=== PATIENT | male | born 1950 | race Caucasian/White ===

== ENCOUNTER 2019-08-13 11:07 | Outpatient (CLI) | payer MEDICARE, SELFPAY ==
[2019-08-13 11:48] LABS: Alanine Aminotransferase 27 U/L (4-50); Albumin Level 4.6 g/dL (3.5-5.1); Alkaline Phosphatase 65 U/L (38-126); Aspartate Amino Transferase 37 U/L (17-59); Bilirubin,Total 0.7 mg/dL (0.2-1.3); Blood Urea Nitrogen 14 mg/dL (9-20); Calcium 9.9 mg/dL (8.4-10.2); Carbon Dioxide 24 mmol/L (22-30); Chloride 94 mmol/L (98-107); Cholesterol 157 mg/dL (0-200); Estimated Glomerular Filt Rate > 60; Glucose 103 mg/dL (75-110); HDL Direct 42 mg/dL; Potassium 4.3 mmol/L (3.4-5.0); Sodium 133 mmol/L (137-145); Triglycerides 107 mg/dL (<150)
[2019-08-13 11:49] LABS: Basophils Absolute Auto 0.1 K/mm3 (0.0-0.1); Basophils Percent Auto 1.1 % (0.2-1.2); Eosinophils Absolute Auto 0.4 K/mm3 (0-0.3); Eosinophils Percent Auto 5.5 % (0-4.4); Hematocrit 40.6 % (42.0-52.0); Hemoglobin 14.6 g/dL (14.0-18.0); Immature Granulocyte Absolute 0.01 K/mm3 (0.00-0.031); Immature Granulocyte Percent A 0.2 % (0-0.5); Lymphocytes Absolute Auto 3.15 K/mm3 (0.9-3.2); Lymphocytes Percent Auto 48.5 % (18.3-44.2); Mean Corpuscular Hemoglobin 31.7 pg (26-34); Mean Corpuscular Volume 88.3 fl (80-100); Mean Platelet Volume 10.3 fl (7.4-10.4); Monocytes Absolute Auto 0.4 K/mm3 (0.1-0.6); Monocytes Percent Auto 5.9 % (2.6-8.5); Neutrophils Absolute Auto 2.5 K/mm3 (1.3-6.7); Neutrophils Percent Auto 38.8 % (45.5-73.1); Platelet Count Result 186 k/mm3 (150-375); Red Cell Distribution Width 12.5 % (11.5-14.5); White Blood Count 6.5 K/mm3 (4.5-10.0)
[2019-08-13 11:59] LABS: LDL Cholesterol Direct 95 mg/dL
[2019-08-13 12:19] LABS: Prostate Specific Antigen 3.5 ng/mL (< OR = 4.0); Total Triiodothyronine (T3) 1.01 NG/ML (0.97-1.69)
[2019-08-13 12:38] LABS: Vitamin D 25 Hydroxy 27.4 ng/mL
== END 2019-08-13 11:08 | disposition home or self-care (01) ==
LOC: ANHLAB 11:11
PROVIDERS: PCP Family Medicine; Visit Provider Nurse Practitioner Family
DX: E78.2 Mixed hyperlipidemia (principal); R53.83 Other fatigue; Z12.5 Encounter for screening for malignant neoplasm of prostate; Z13.6 Encounter for screening for cardiovascular disorders
CPT/HCPCS: 36415; 80053; 80061; 82306; 84153; 84439; 84443; 84480; 85025; G0103

== ENCOUNTER 2019-12-31 10:26 | Outpatient (CLI) | payer MEDICARE, SELFPAY ==
[2019-12-31 12:11] LABS: Phosphorus 3.9 mg/dL (2.5-4.5)
[2019-12-31 12:34] LABS: Vitamin D 25 Hydroxy 53.1 ng/mL
== END 2019-12-31 10:27 | disposition home or self-care (01) ==
PROVIDERS: PCP Family Medicine; Visit Provider Nurse Practitioner Family
DX: E55.9 Vitamin D deficiency, unspecified (principal); M62.81 Muscle weakness (generalized)
CPT/HCPCS: 36415; 82306; 83735; 84100

== ENCOUNTER 2020-03-24 14:34 | Outpatient (CLI) | payer MEDICARE, SELFPAY ==
[2020-03-24 16:04] LABS: Alanine Aminotransferase 44 U/L (4-50); Albumin Level 4.4 g/dL (3.5-5.1); Alkaline Phosphatase 55 U/L (38-126); Anion Gap 7 mmol/L (8-16); Aspartate Amino Transferase 55 U/L (17-59); Blood Urea Nitrogen 10 mg/dL (9-20); Calcium 9.7 mg/dL (8.4-10.2); Carbon Dioxide 25 mmol/L (22-30); Chloride 95 mmol/L (98-107); Estimated Glomerular Filt Rate > 60; Glucose 109 mg/dL (75-110); Magnesium 1.9 mg/dL (1.6-2.3); Phosphorus 2.8 mg/dL (2.5-4.5); Potassium 4.7 mmol/L (3.4-5.0); Sodium 127 mmol/L (137-145)
== END 2020-03-24 14:35 | disposition home or self-care (01) ==
PROVIDERS: PCP Family Medicine; Visit Provider Nurse Practitioner
DX: R25.2 Cramp and spasm (principal); I10 Essential (primary) hypertension
CPT/HCPCS: 36415; 80053; 82607; 83735; 84100

== ENCOUNTER 2020-11-21 16:34 | Outpatient (CLI) | payer MEDICARE, SELFPAY ==
--- NOTE | ~2020-11-21 | XR_ITS ---
XR chest 2V DATE: 11/21/2020 17:08 INDICATION: Cough, shortness of breath. Smoker, history of COPD. TECHNIQUE: PA and lateral views COMPARISON: 07/05/2019 2 view chest FINDINGS: Normal heart size. Aortic calcification and mild tortuosity. No hilar or mediastinal enlarg ement is evident. No pulmonary infiltrate or consolidation, pleural effusion or pulmonary vascular congestion or pneumo thorax. Diffuse osteopenia. Degenerative spurring of the thoracic spine. IMPRESSION: No active cardiopulmonary disease Aortic atherosclerosis Reviewed, dictated and finalized at location B.
[2020-11-21 17:12] LABS: Basophils Absolute Auto 0.1 K/mm3 (0.0-0.1); Eosinophils Absolute Auto 0.3 K/mm3 (0-0.3); Eosinophils Percent Auto 4.3 % (0-4.4); Hematocrit 40.7 % (42.0-52.0); Hemoglobin 14.4 g/dL (14.0-18.0); Immature Granulocyte Absolute 0.01 K/mm3 (0.00-0.031); Immature Granulocyte Percent A 0.2 % (0-0.5); Lymphocytes Absolute Auto 2.42 K/mm3 (0.9-3.2); Lymphocytes Percent Auto 41.2 % (18.3-44.2); Mean Corpuscular HGB Conc 35.4 g/dl (32-36); Mean Corpuscular Hemoglobin 32.6 pg (26-34); Mean Corpuscular Volume 92.1 fl (80-100); Mean Platelet Volume 9.9 fl (7.4-10.4); Monocytes Absolute Auto 0.5 K/mm3 (0.1-0.6); Monocytes Percent Auto 7.8 % (2.6-8.5); Neutrophils Absolute Auto 2.7 K/mm3 (1.3-6.7); Neutrophils Percent Auto 45.5 % (45.5-73.1); Platelet Count Result 173 k/mm3 (150-375); Red Blood Count 4.42 M/mm3 (4.6-6.20); Red Cell Distribution Width 12.8 % (11.5-14.5); White Blood Count 5.9 K/mm3 (4.5-10.0)
[2020-11-21 18:06] LABS: Free T4 Free Thyroxine 0.85 ng/mL (0.78-2.19); Vitamin D 25 Hydroxy 56.2 ng/mL
[2020-11-22 13:48] LABS: Alanine Aminotransferase 31 U/L (4-50); Albumin Level 4.5 g/dL (3.5-5.1); Alkaline Phosphatase 61 U/L (38-126); Anion Gap 9 mmol/L (8-16); Aspartate Amino Transferase 48 U/L (17-59); Bilirubin,Total 0.4 mg/dL (0.2-1.3); Blood Urea Nitrogen 9 mg/dL (9-20); Calcium 10.1 mg/dL (8.4-10.2); Carbon Dioxide 24 mmol/L (22-30); Chloride 102 mmol/L (98-107); Cholesterol 147 mg/dL (0-200); Estimated Glomerular Filt Rate > 60; Glucose 140 mg/dL (75-110); HDL Direct 38 mg/dL; Potassium 4.1 mmol/L (3.4-5.0); Sodium 135 mmol/L (137-145); Triglycerides 105 mg/dL (<150)
[2020-11-22 13:59] LABS: LDL Cholesterol Direct 88 mg/dL
[2020-11-22 14:24] LABS: Prostate Specific Antigen 4.2 ng/mL (< OR = 4.0); Total Triiodothyronine (T3) 1.27 NG/ML (0.97-1.69)
== END 2020-11-21 16:35 | disposition home or self-care (01) ==
LOC: ANHLAB 16:41
PROVIDERS: PCP Family Medicine; Visit Provider Family Medicine
DX: R05 Cough (principal); I10 Essential (primary) hypertension; J44.9 Chronic obstructive pulmonary disease, unspecified; Z13.0 Encounter for screening for diseases of the blood and blood-forming organs and certain disorders involving the immune mechanism; Z13.6 Encounter for screening for cardiovascular disorders; Z13.220 Encounter for screening for lipoid disorders; Z13.29 Encounter for screening for other suspected endocrine disorder; Z12.5 Encounter for screening for malignant neoplasm of prostate; E55.9 Vitamin D deficiency, unspecified
CPT/HCPCS: 36415; 71046; 80053; 80061; 82306; 84153; 84439; 84443; 84480; 85025; G0103

== ENCOUNTER 2022-10-21 01:57 | Day surgery (SDC) | payer MEDICARE, SELFPAY ==
[2022-10-08 12:17] VITALS: BMI 31.1
[2022-10-21 12:22] VITALS: BP 107/95; PULSE 55; RESP 18; TEMP 36.6; O2SAT 97
[2022-10-21] MEDS: LACTATED RINGERS 1,000 ML 150 ML IV CONT (12:44)
--- NOTE | 2022-10-21 13:02 | PM.HPGS ---
History of Present Illness History of Present Illness Consent: Risks, benefits, and alternatives have been discussed and questions answered. Patient agrees to proceed with procedure. Chief complaint: neoplasm screening Narrative: Henry Ardon is a 72 year old male Presents for screening colonoscopy. Patient's current weight appetite and bowel movements are normal. Patient denies abdominal pain. He has had no bleeding. Family history noncontributory. Review of Systems Review of Systems: Review of systems noncontributory. [facility] Past Medical History Medical History BPH (benign prostatic hyperplasia) Bronchitis CHF (congestive heart failure) Chronic GERD Chronic low back pain COPD (chronic obstructive pulmonary disease) COPD (chronic obstructive pulmonary disease) Depression Encounter for screening for malignant neoplasm of prostate GERD (gastroesophageal reflux disease) HLD (hyperlipidemia) Hyperlipidemia Leg fracture, right Mild intermittent reactive airway disease Prostate CA Screening for colon cancer Surgical History Surgical History H/O repair of right rotator cuff History of esophagogastroduodenoscopy (EGD) Family History Family History Father Malignant neoplasm of prostate Heart disease Cerebrovascular accident Mother Acute myocardial infarction Social History Social History Smoking status: Former smoker Smoking end date: 07/07/71 Alcohol intake: former Substance use: current Substance use type: marijuana Last use: occasional Lack of Transportation: No Lack of Food: Never True Current Housing: I Have Housing Concerned About Future Housing: No Difficulty Paying Gas/Electric Bills: No Difficulty Paying for Meds: No Currently Unemployed: No Education: Don't Know Difficulty w/ Childcare or Family Care: No Living arrangements: with family Additional living arrangements comments: Occupation/Education: retired Gender identity (if verbalized by the patient): Male Spiritual care concerns: No Agree to blood products: Yes Meds Home Medications and Allergies Home Medications Medication Instructions Recorded Confirmed Type budesonide-formoterol HFA 160 1 inh inhalation DAILY PRN COPD 09/24/22 10/15/22 Rx mcg-4.5 mcg/actuation aerosol #10.2 grams inhaler (Symbicort) omeprazole 40 mg capsule,delayed 40 mg PO DAILY #90 caps 09/24/22 10/15/22 Rx release tamsulosin 0.4 mg capsule 0.4 mg PO QHS #90 caps 09/24/22 10/15/22 Rx escitalopram oxalate 20 mg tablet 20 mg PO DAILY #90 tabs 10/15/22 10/21/22 Rx (Lexapro) lisinopril 5 mg tablet 10 mg PO DAILY #90 tabs 10/15/22 10/21/22 Rx Allergies Allergy/AdvReac Type Severity Reaction Status Date / Time No Known Allergies Allergy Verified 10/21/22 12:21 Vital Signs Vital Signs - 24 hr 10/21/22 12:22 Temperature 97.8 F Pulse Rate 55 L Respiratory Rate 18 Blood Pressure 107/95 H Pulse Oximetry 97 Oxygen Delivery Room Air Exam Narrative: Physical exam reveals patient to be alert. Vital signs stable. HEENT exam is unremarkable. Patient is anicteric. Lungs are clear to auscultation and percussion. Heart is without murmur or extra sounds. Abdomen bowel sounds are present soft nontender with no organomegaly. Digital external rectal exam is normal. Assessment and Plan Assessment and plan (1) Screening for colon cancer: Code(s): Z12.11 - Encounter for screening for malignant neoplasm of colon Status: Acute Assessment and Plan: Patient presents today for screening colonoscopy. He appears to be at average risk for colon polyps. Further recommendations may be given after endoscopy.
--- NOTE | 2022-10-21 13:02 | WPDANESEPPF ---
Anes - Initial Pre Proc Eval Procedure: Operation Date: 10/21/22 14:00 Proposed Procedures p Screening Colonoscopy - Yaron Ugarte MD Date/Time: 10/21/22 13:02 Surgeon: Yaron Ugarte MD Pre Op Diagnosis: neoplasm screening Patient Data Age: 72 Gender: M Height: 1.85 m Weight: 98.2 kg Last Vital Signs Temp 97.8 F 10/21/22 12:22 Pulse 55 L 10/21/22 12:22 Resp 18 10/21/22 12:22 BP 107/95 H 10/21/22 12:22 Pulse Ox 97 10/21/22 12:22 O2 Del Method Room Air 10/21/22 12:22 Allergies Allergy/AdvReac Type Severity Reaction Status Date / Time No Known Allergies Allergy Verified 10/21/22 12:21 Home Medications Medication Instructions Recorded Confirmed Type budesonide-formoterol HFA 160 1 inh inhalation DAILY PRN COPD 09/24/22 10/15/22 Rx mcg-4.5 mcg/actuation aerosol #10.2 grams inhaler (Symbicort) omeprazole 40 mg capsule,delayed 40 mg PO DAILY #90 caps 09/24/22 10/15/22 Rx release tamsulosin 0.4 mg capsule 0.4 mg PO QHS #90 caps 09/24/22 10/15/22 Rx escitalopram oxalate 20 mg tablet 20 mg PO DAILY #90 tabs 10/15/22 10/21/22 Rx (Lexapro) lisinopril 5 mg tablet 10 mg PO DAILY #90 tabs 10/15/22 10/21/22 Rx Patient hx anesthesia problems: none Family hx anesthesia problems: none Results Review: All pre-operative results and documents have been reviewed as part of the pre-operative evaluation. [facility] Past Medical History Medical History BPH (benign prostatic hyperplasia) Bronchitis CHF (congestive heart failure) Chronic GERD Chronic low back pain COPD (chronic obstructive pulmonary disease) COPD (chronic obstructive pulmonary disease) Depression Encounter for screening for malignant neoplasm of prostate GERD (gastroesophageal reflux disease) HLD (hyperlipidemia) Hyperlipidemia Leg fracture, right Mild intermittent reactive airway disease Prostate CA Screening for colon cancer Surgical History Surgical History H/O repair of right rotator cuff History of esophagogastroduodenoscopy (EGD) Family History Family History Father Malignant neoplasm of prostate Heart disease Cerebrovascular accident Mother Acute myocardial infarction Social History Social History Smoking status: Former smoker Smoking end date: 07/07/71 Alcohol intake: former Substance use: current Substance use type: marijuana Last use: occasional Lack of Transportation: No Lack of Food: Never True Current Housing: I Have Housing Concerned About Future Housing: No Difficulty Paying Gas/Electric Bills: No Difficulty Paying for Meds: No Currently Unemployed: No Education: Don't Know Difficulty w/ Childcare or Family Care: No Living arrangements: with family Additional living arrangements comments: Occupation/Education: retired Gender identity (if verbalized by the patient): Male Spiritual care concerns: No Agree to blood products: Yes Anes - Eval Final PreProcedure Day of Procedure 10/21/22 13:02 Patient weight: normal Heart: regular rate and rhythm Lungs: clear to auscultation Airway: Mallampati scale class II Neurological: alert and oriented Last oral intake: >/= 8 hours ASA classification: III Emergent: no Anesthetic plan: proceed Anesthesia type and monitoring: general GIVS and standard monitoring Results Review: All pre-operative results and documents have been reviewed as part of the pre-operative evaluation. Informed Consent: The patient's anesthetic plan and its attendant risks and benefits were discussed with the patient/family/POA. Questions were solicited and answers provided to the satisfaction of the patient/family/POA.
--- NOTE | 2022-10-21 13:10 | WPDANESEPPF ---
Anes - Initial Pre Proc Eval Procedure: Operation Date: 10/21/22 14:00 Proposed Procedures p Screening Colonoscopy - Yaron Ugarte MD Date/Time: 10/21/22 13:10 Surgeon: Yaron Ugarte MD Pre Op Diagnosis: neoplasm screening Patient Data Age: 72 Gender: M Height: 1.85 m Weight: 98.2 kg Last Vital Signs Temp 97.8 F 10/21/22 12:22 Pulse 55 L 10/21/22 12:22 Resp 18 10/21/22 12:22 BP 107/95 H 10/21/22 12:22 Pulse Ox 97 10/21/22 12:22 O2 Del Method Room Air 10/21/22 12:22 Allergies Allergy/AdvReac Type Severity Reaction Status Date / Time No Known Allergies Allergy Verified 10/21/22 12:21 Home Medications Medication Instructions Recorded Confirmed Type budesonide-formoterol HFA 160 1 inh inhalation DAILY PRN COPD 09/24/22 10/15/22 Rx mcg-4.5 mcg/actuation aerosol #10.2 grams inhaler (Symbicort) omeprazole 40 mg capsule,delayed 40 mg PO DAILY #90 caps 09/24/22 10/15/22 Rx release tamsulosin 0.4 mg capsule 0.4 mg PO QHS #90 caps 09/24/22 10/15/22 Rx escitalopram oxalate 20 mg tablet 20 mg PO DAILY #90 tabs 10/15/22 10/21/22 Rx (Lexapro) lisinopril 5 mg tablet 10 mg PO DAILY #90 tabs 10/15/22 10/21/22 Rx Patient hx anesthesia problems: none Family hx anesthesia problems: none Results Review: All pre-operative results and documents have been reviewed as part of the pre-operative evaluation. [facility] Past Medical History Medical History BPH (benign prostatic hyperplasia) Bronchitis CHF (congestive heart failure) Chronic GERD Chronic low back pain COPD (chronic obstructive pulmonary disease) COPD (chronic obstructive pulmonary disease) Depression Encounter for screening for malignant neoplasm of prostate GERD (gastroesophageal reflux disease) HLD (hyperlipidemia) Hyperlipidemia Leg fracture, right Mild intermittent reactive airway disease Prostate CA Screening for colon cancer Surgical History Surgical History H/O repair of right rotator cuff History of esophagogastroduodenoscopy (EGD) Family History Family History Father Malignant neoplasm of prostate Heart disease Cerebrovascular accident Mother Acute myocardial infarction Social History Social History Smoking status: Former smoker Smoking end date: 07/07/71 Alcohol intake: former Substance use: current Substance use type: marijuana Last use: occasional Lack of Transportation: No Lack of Food: Never True Current Housing: I Have Housing Concerned About Future Housing: No Difficulty Paying Gas/Electric Bills: No Difficulty Paying for Meds: No Currently Unemployed: No Education: Don't Know Difficulty w/ Childcare or Family Care: No Living arrangements: with family Additional living arrangements comments: Occupation/Education: retired Gender identity (if verbalized by the patient): Male Spiritual care concerns: No Agree to blood products: Yes Anes - Eval Final PreProcedure Day of Procedure 10/21/22 13:10 Patient weight: normal Heart: regular rate and rhythm Lungs: clear to auscultation Airway: Mallampati scale class II Neurological: alert and oriented Last oral intake: >/= 8 hours ASA classification: III Emergent: no Anesthetic plan: proceed Anesthesia type and monitoring: general GIVS and standard monitoring Results Review: All pre-operative results and documents have been reviewed as part of the pre-operative evaluation. Informed Consent: The patient's anesthetic plan and its attendant risks and benefits were discussed with the patient/family/POA. Questions were solicited and answers provided to the satisfaction of the patient/family/POA.
[2022-10-21 14:09] VITALS: BP 112/68; PULSE 48; RESP 23; O2SAT 95
[2022-10-21 14:19] VITALS: BP 123/66; PULSE 44; RESP 18; O2SAT 97
[2022-10-21 14:29] VITALS: BP 136/79; PULSE 45; RESP 21; O2SAT 96
== END 2022-10-21 14:42 | disposition home or self-care (01) ==
PROVIDERS: PCP Family Medicine; Visit Provider Internal Medicine Gastroenterology
PROC: 0DJD8ZZ Inspection of Lower Intestinal Tract, Via Natural or Artificial Opening Endoscopic (ICD-10-PCS; CPT 45378; principal; 2022-10-21 14:00)
DX: Z12.11 Encounter for screening for malignant neoplasm of colon (principal); D12.5 Benign neoplasm of sigmoid colon; K64.8 Other hemorrhoids; J44.9 Chronic obstructive pulmonary disease, unspecified; I50.9 Heart failure, unspecified; N40.0 Benign prostatic hyperplasia without lower urinary tract symptoms; K21.9 Gastro-esophageal reflux disease without esophagitis; E78.5 Hyperlipidemia, unspecified; J45.20 Mild intermittent asthma, uncomplicated; Z85.46 Personal history of malignant neoplasm of prostate; Z79.51 Long term (current) use of inhaled steroids; Z87.891 Personal history of nicotine dependence; F12.90 Cannabis use, unspecified, uncomplicated
CPT/HCPCS: 45385; 88305; J2704; J7120

== ENCOUNTER 2023-05-16 01:15 | Emergency (ER) | payer MEDICARE, MEDICAID, SELFPAY ==
[2023-05-16] VITALS (23 sets, daily range): BP systolic 125–214; BP diastolic 82–102; PULSE 52–100; RESP 14–26; TEMP 36.6; O2SAT 98–99
--- NOTE | ~2023-05-16 | XR_ITS ---
Portable chest x-ray Comparison: 11/21/2020 Clinical History: Dyspnea Findings: Lungs are clear, without focal consolidation or pleural effusion. Cardiomediastinal silho uette is stable. Bones and soft tissues are unremarkable. Impression: Clear lungs. Reviewed, dictated and finalized at location . HYSICS PROFESSOR Impression: Clear lungs.
--- NOTE | ~2023-05-16 | CT_ITS ---
Non-contrast Head CT History: Dizziness Technique: Axial non-contrast imaging of the brain was performed. Dose reduction technique was used on this scan by utilizing automated exposure control and iterative reconstruction technique. The dose -length product (DLP) was 681.00 mGy-cm. Findings: There is no evidence of intracranial hemorrhage, mass lesion, or acute infarct. Brain par enchyma appears normal. The ventricles and subarachnoid spaces are normal in size. The calvarium ap pears normal. There is mild bilateral ethmoid and left maxillary sinus disease. The remaining visuali zed paranasal sinuses and mastoid air cells are clear. Impression: No intracranial abnormality seen. Mild sinus disease, as above. Reviewed, dictated and finalized at location . FLOW REGULATOR Impression: No intracranial abnormality seen. Mild sinus disease, as above.
--- NOTE | ~2023-05-16 | CT_ITS ---
CT of the Abdomen and Pelvis: Indication: Abdominal pain Technique: 2.5 mm axial scans were obtained through the abdomen and pelvis following intravenous adm inistration of 100 cc of Omnipaque 350. Dose reduction technique was used on this scan by utilizing a utomated exposure control and iterative reconstruction technique. The dose-length product (DLP) was 1 279.09 mGy-cm. COMPARISON: 07/07/2019 Findings: Scans through the lung bases are unremarkable. Nodular contour of liver noted. No focal mass lesion or biliary dilatation evident. The spleen, pancr eas, gallbladder, adrenals and kidneys are within normal limits. There are atherosclerotic calcificat ions of the aorta. No lymphadenopathy. No bowel obstruction or bowel wall thickening. There is no evidence to suggest acute appendicitis. Images through the pelvis were performed. There is mild urinary bladder wall thickening. Prostate gla nd is enlarged. No ascites. Impression: Urinary bladder wall thickening. Correlate for cystitis/UTI. Cirrhotic change of the liver. Enlarged prostate gland. Reviewed, dictated and finalized at location . CONSULTANT Impression: Urinary bladder wall thickening. Correlate for cystitis/UTI. Cirrhotic change of the liver. Enlarged prostate gland.
--- NOTE | 2023-05-16 01:45 | ECG_ITS ---
Measurements Intervals [place] Rate: 52 P: 76 VT: 200 QRS: 1 QRSD: 95 T: 68 QT: 436 QTc: 407 Interpretive Statements SINUS BRADYCARDIA BORDERLINE AV CONDUCTION DELAY LEFT VENTRICULAR HYPERTROPHY WITH ST-T CHANGE BASELINE ARTIFACT- I, II, III, AVR, AVL, AVF, V1 BORDERLINE ECG COMPARED TO ECG 07/05/2019 20:10:18 NO SIGNIFICANT CHANGES Electronically Signed On 05-16-2023 6:21:32 [employer] ENGINEERING MANAGER by Antione Sebastian D.O.
--- NOTE | 2023-05-16 01:48 | ED.GENADULT ---
HPI - General Adult General Chief complaint: Unspecified Stated complaint: high blood pressure Time Seen by Provider: 05/16/23 01:37 History of Present Illness HPI narrative: Patient is 52-year-old gentleman who presents the emergency department with chief complaint of shortness of breath and hypertension and abdominal discomfort. The patient reports that he has history of hypertension and has been out of his medications for approximately 1 month patient also has been out of his inhalers and reports that he has been having increasing shortness of breath. Patient states he is also not been having good bowel movements and feels as though his abdomen is distended and as though he has constipation. The patient states he took a Dulcolax yesterday and his abdomen feels crampy today and hurts whenever his abdomen is pushed on. The patient states this evening he felt shaky and just did not feel right and decided to come to the emergency department. Related Data Allergies Allergy/AdvReac Type Severity Reaction Status Date / Time No Known Allergies Allergy Verified 05/16/23 01:42 [facility] Past Medical History Medical History BPH (benign prostatic hyperplasia) Bronchitis CHF (congestive heart failure) Chronic GERD Chronic low back pain COPD (chronic obstructive pulmonary disease) COPD (chronic obstructive pulmonary disease) Depression Encounter for screening for malignant neoplasm of prostate GERD (gastroesophageal reflux disease) HLD (hyperlipidemia) Hyperlipidemia Leg fracture, right Mild intermittent reactive airway disease Prostate CA Screening for colon cancer Surgical History Surgical History H/O repair of right rotator cuff History of esophagogastroduodenoscopy (EGD) Family History Family History Father Malignant neoplasm of prostate Heart disease Cerebrovascular accident Mother Acute myocardial infarction Social History Social History Smoking status: Former smoker Smoking end date: 07/07/71 Alcohol intake: former Substance use: current Substance use type: marijuana Last use: occasional Lack of Transportation: No Lack of Food: Never True Current Housing: I Have Housing Concerned About Future Housing: No Difficulty Paying Gas/Electric Bills: No Difficulty Paying for Meds: No Currently Unemployed: No Education: Don't Know Difficulty w/ Childcare or Family Care: No Living arrangements: with family Additional living arrangements comments: Occupation/Education: retired Gender identity (if verbalized by the patient): Male Spiritual care concerns: No Agree to blood products: Yes Course Vital Signs Vital signs: Vital Signs Temperature 36.6 C 05/16/23 01:19 Pulse Rate 61 05/16/23 01:19 Respiratory Rate 20 05/16/23 01:19 Blood Pressure 125/94 H 05/16/23 01:19 Pulse Oximetry 98 05/16/23 01:19 Oxygen Delivery Room Air 05/16/23 01:19 Temperature 36.6 C 05/16/23 01:19 Pulse Rate 70 05/16/23 04:34 Respiratory Rate 21 H 05/16/23 04:34 Blood Pressure 161/86 H 05/16/23 04:34 Pulse Oximetry 99 05/16/23 02:06 Oxygen Delivery Room Air 05/16/23 02:06 Medical Decision Making [facility] Narrative Medical decision making narrative: Differential diagnosis includes hypertension hypertensive urgency, ACS, abdominal pain, constipation Laboratory studies were obtained and patient was within normal limits. Chest x-ray showed no focal infiltrate CT head showed no evidence of intracranial hemorrhage CT abdomen pelvis showed no acute abnormality other than thickened bladder Urinalysis showed no evidence of UTI Vital Signs Vital Signs: Vital Signs Temperature 36.6 C 05/16/23 01:19 Pulse Rate 6
[2023-05-16] MEDS: hydrALAZINE HCL 20 MG/ML VIAL 10 MG IV PUSH (01:58)
[2023-05-16 02:07] LABS: Basophils Percent Auto 0.6 % (0.2-1.2); Eosinophils Absolute Auto 0.2 K/mm3 (0-0.3); Hematocrit 38.8 % (42.0-52.0); Hemoglobin 13.3 g/dL (14.0-18.0); Lymphocytes Absolute Auto 2.11 K/mm3 (0.9-3.2); Lymphocytes Percent Auto 42.9 % (18.3-44.2); Mean Corpuscular HGB Conc 34.3 g/dl (32-36); Mean Corpuscular Hemoglobin 32.1 pg (26-34); Mean Corpuscular Volume 93.7 fl (80-100); Mean Platelet Volume 10.5 fl (7.4-10.4); Monocytes Absolute Auto 0.4 K/mm3 (0.1-0.6); Monocytes Percent Auto 8.1 % (2.6-8.5); Neutrophils Absolute Auto 2.2 K/mm3 (1.3-6.7); Neutrophils Percent Auto 45.4 % (45.5-73.1); Platelet Count Result 151 k/mm3 (150-375); Red Blood Count 4.14 M/mm3 (4.6-6.20); Red Cell Distribution Width 13.3 % (11.5-14.5); White Blood Count 4.9 K/mm3 (4.5-10.0)
[2023-05-16] MEDS: IPRATROPIUM BR 0.02% INH SOLN 0.5 MG/2.5 ML VIAL INHALATION (02:07)
[2023-05-16] MEDS: ALBUTEROL SULFATE NEB 2.5 MG/3 ML INH INHALATION (02:07)
[2023-05-16 02:17] LABS: Appearance Urine Clear (Clear); Bilirubin Urine Negative (Negative); Blood Urine Negative (Negative); Color Urine Yellow (Yellow); Glucose Urine UA Negative (Negative); Ketones Urine Negative (Negative); Leukocyte Esterase Ur Negative LEU/UL (Negative); Nitrate Urine Negative (Negative); Protein Urine Negative (Negative); Specific Grav Ur 1.014 (1.001-1.035); Urobilinogen Urine 0.2 mg/dL (<2.0); pH Urine 7.5 (5.0-9.0)
[2023-05-16 02:20] LABS: Lactic Acid Reflex 1.5 mmol/L (0.7-2.0)
[2023-05-16 02:26] LABS: Alanine Aminotransferase 30 U/L (6-50); Albumin Level 4.6 g/dL (3.5-5.1); Alkaline Phosphatase 58 U/L (38-126); Anion Gap 10 mmol/L (8-16); Aspartate Amino Transferase 42 U/L (17-59); Bilirubin,Total 0.6 mg/dL (0.2-1.3); Blood Urea Nitrogen 13 mg/dL (9-20); Calcium 10.5 mg/dL (8.4-10.2); Carbon Dioxide 25 mmol/L (22-30); Chloride 102 mmol/L (98-107); Estimated CRCL calculation 94 ml/min; Estimated Glomerular Filt Rate > 60; Glucose 109 mg/dL (65-110); Lipase 79 U/L (23-300); Prothrombin Time 13.7 Seconds (11.1-14.7); Sodium 137 mmol/L (137-145)
[2023-05-16 02:27] LABS: Partial Thromboplastin Time 34.3 SECONDS (22.3-36.8)
[2023-05-16 02:35] LABS: Add Urine Microscopic? NO
[2023-05-16 02:37] LABS: NT Pro B Type Natriuretic Pept 206 pg/mL (19.9-100); Troponin I < 0.012 ng/mL (0.000-0.034)
[2023-05-16] MEDS: lisinopriL 20 MG TABLET PO (04:07)
[2023-05-16 05:17] LABS: Troponin I < 0.012 ng/mL (0.000-0.034)
== END 2023-05-16 06:12 | disposition home or self-care (01) ==
PROVIDERS: Emergency Provider Emergency Medicine; PCP Family Medicine
DX: I11.0 Hypertensive heart disease with heart failure (principal); R10.9 Unspecified abdominal pain; I50.9 Heart failure, unspecified; J44.9 Chronic obstructive pulmonary disease, unspecified; J45.20 Mild intermittent asthma, uncomplicated; N40.0 Benign prostatic hyperplasia without lower urinary tract symptoms; K21.9 Gastro-esophageal reflux disease without esophagitis; Z85.46 Personal history of malignant neoplasm of prostate; Z87.891 Personal history of nicotine dependence; R00.1 Bradycardia, unspecified; R94.31 Abnormal electrocardiogram [ECG] [EKG]; I51.7 Cardiomegaly; R93.41 Abnormal radiologic findings on diagnostic imaging of renal pelvis, ureter, or bladder; R93.2 Abnormal findings on diagnostic imaging of liver and biliary tract
CPT/HCPCS: 36415; 70450; 71045; 74177; 80053; 81003; 83605; 83690; 83735; 83880; 84484; 85025; 85610; 85730; 93005; 94640; 96374; 99284; A9270; J0360; Q9967

== ENCOUNTER 2023-06-24 07:29 | Outpatient (CLI) | payer MEDICARE, MEDICAID, SELFPAY ==
--- NOTE | ~2023-06-24 | NM_ITS ---
EXAMINATION: NM myla stress w perfusion DATE: 06/24/2023 11:54 INDICATION: Hypertension TECHNIQUE: Rest images were obtained following intravenous administration of 12.5 mCi Tc99m tetrofosm in (Myoview). The patient was infused intravenously with Lexiscan (Regadenoson). Then, 34.5 mCi Tc99m tetrofosmin (Myoview) was administered intravenously, and stress images were obtained in both the márquez pine and prone positions. Data was reconstructed into short axis and horizontal and vertical long axi s SPECT images. Gated SPECT images were also obtained. COMPARISON: None. FINDINGS: There is decreased activity at the apical, apical lateral, anteroapical and to lesser degre e inferoapical segments on the rest and post stress imaging obtained in the supine position. This lar earnestine normalizes on the post stress images obtained in the prone position with only a small residual f ocus of improved but still minimally decreased activity at the apical septal segment and favor residu al artifact over infarct. There is no other definite reversible or fixed perfusion abnormality to sug gest ischemia or infarction. There is normal left ventricular chamber size, wall motion and ejection fraction. Left ventricular ejection fraction measures 56%. IMPRESSION: 1. Artifactual attenuation at the apex and a few of the periapical segments on supine imaging which n early completely normalizes on the prone post stress imaging. Would favor residual artifact over infa rct for the residual small focus of minimal decreased activity at the apical septal segment. 2. Left ventricular ejection fraction measuring 56%. Reviewed, dictated and finalized at location A. WORKER IMPRESSION: 1. Artifactual attenuation at the apex and a few of the periapical segments on supine imaging which nearly completely normalizes on the prone post stress imag ing. Would favor residual artifact over infarct for the residual small focus of minimal decreased activity at the apical septal segment. 2. Left ventricular ejection fraction measuring 56%.
--- NOTE | 2023-06-24 07:44 | ECHO_ITS ---
Patient Info Name: Henry Ardon Age: 72 years : 1950 Gender: Male Ht: 73 in Wt: 218 lbs BSA: 2.28 m2 HR: 52 bpm BP: 130 / 86 mmHg Heart Rhythm: Bradycardia Technical Quality: Fair Exam Date: 06/24/2023 7:51 AM Exam Location: Echo Lab Patient Status: Outpatient Admit Date: 06/24/2023 Staff Ordering Physician: Antione Sebastian DO Attending Provider: Antione Sebastian DO Referring Physician: Romulo PATTERSON; Exam Type: CA echo doppler color flow Study Info Indications I10 - Essential (primary) hypertension Complete two-dimensional, color flow and Doppler transthoracic echocardiogram is performed. Summary 1. Complete two-dimensional, color flow and Doppler transthoracic echocardiogram is performed. 2. Left ventricular chamber dimension is normal. 3. Left ventricular systolic function is normal, estimated at 60-65%. 4. There is mild concentric increased left ventricular wall thickness. 5. The left ventricular diastolic function is normal. 6. Left atrial chamber dimension is mildly enlarged. 7. There is mild aortic valve sclerosis. 8. There is mild to moderate aortic valve regurgitation. 9. There is mild mitral valve regurgitation. Left Ventricle Tissue doppler is not performed. Left ventricular chamber dimension is normal. Left ventricular systolic function is normal, estimated at 60-65%. There is mild concentric increased left ventricular wall thickness. The left ventricular diastolic function is normal. Right Ventricle Right ventricular chamber dimension is normal. Right ventricular systolic function is normal. Left Atria Left atrial chamber dimension is mildly enlarged. Right Atria Right atrial chamber dimension is normal. Aortic Valve The aortic valve is trileaflet. There is mild aortic valve sclerosis. There is no aortic valve stenosis. There is mild to moderate aortic valve regurgitation. Pulmonic Valve There is no pulmonic regurgitation. Mitral Valve There is no mitral valve stenosis. There is mild mitral valve regurgitation. Tricuspid Valve There is no tricuspid valve regurgitation. Pericardium/Pleural There is no pericardial effusion. Inferior Vena Cava Normal inferior vena cava with >50% collapse upon inspiration consistent with normal right atrial pressure, 5 mmHg. Aorta The aortic root size at the sinus of Valsalva is normal. Left Ventricular Outflow Tract Name Value Normal LVOT 2D LVOT Diameter 2.0 cm LVOT Doppler LVOT Peak Gradient 3 mmHg LVOT Mean Gradient 1 mmHg LVOT VTI 20 cm LVOT VTI/AV VTI Ratio 0.6 LVOT Stroke Volume 62 ml LVOT CO 3.7 l/min LVOT CI 1.6 l/min/m2 Pulmonic Valve Name Value Normal PV Doppler PV Peak Gradient 3 mmHg Mitral Valve
--- NOTE | 2023-06-24 08:12 | EST_ITS ---
Patient Info Name: Henry Ardon Age: 72 years : 1950 Gender: Male Ht: 73 in Wt: 235 lbs BSA: 2.37 m2 HR: 43 bpm BP: 145 / 74 mmHg Exam Date: 06/24/2023 10:02 AM Exam Location: Echo Lab Patient Status: Outpatient Admit Date: 06/24/2023 Staff Ordering Physician: Antione Sebastian DO Attending Provider: Antione Sebastian DO Exercise Technologist: Roberta Reynolds RDCS Exercise Physician: Antione Sebastian DO Exam Type: CA stress myla w NM Study Info A regadenoson stress test was performed. Summary 1. 1. Negative lexiscan stress test for ischemic ST changes by ECG criteria. 2. 2. Baseline hypertension. 3. 3. Nuclear scan to follow and will be reported separately. Please correlate with it. 4. 4. Patient informed of the above results. Protocol: Lexiscan Stress ECG Details Stage: REST Duration (min): 4 min : 23 sec HR (bpm): 44 SBP (mmHg): 145 DBP (mmHg): 74 Stage: REST Duration (min): 8 min : 54 sec HR (bpm): 45 SBP (mmHg): 145 DBP (mmHg): 74 Stage: STAGE 1 Duration (min): 1 min : 0 sec HR (bpm): 53 SBP (mmHg): 164 DBP (mmHg): 83 Stage: RECOVERY Duration (min): 1 min : 0 sec HR (bpm): 58 SBP (mmHg): 164 DBP (mmHg): 83 Stage: RECOVERY Duration (min): 2 min : 0 sec HR (bpm): 52 SBP (mmHg): 164 DBP (mmHg): 83 Stage: RECOVERY Duration (min): 3 min : 0 sec HR (bpm): 49 SBP (mmHg): 149 DBP (mmHg): 79 Stage: RECOVERY Duration (min): 4 min : 0 sec HR (bpm): 50 SBP (mmHg): 149 DBP (mmHg): 79 Stage: RECOVERY Duration (min): 4 min : 4 sec HR (bpm): 49 SBP (mmHg): 149 DBP (mmHg): 79 Rest HR: 45 bpm Peak HR: 60 bpm Rest Sys BP: 145 mmHg Peak Sys BP: 164 mmHg Max Pred HR: 149 bpm % Max Pred HR: 40 % Target HR: 127 bpm Max RPP: 9,840 bpm*mmHg Termination Reason: Completed protocol Cardiac Symptoms: Shortness of breath Total Time: 1 min : 0 sec Rest Wiggins BP: 74 mmHg Peak Wiggins BP: 83 mmHg Total Dose: 0.4 mg Resting ECG Sinus bradycardia. Stress ECG No ST changes. Arrhythmias None. Report Signatures
== END 2023-06-24 07:30 | disposition home or self-care (01) ==
LOC: ANHCARD 07:33
PROVIDERS: PCP Family Medicine; Visit Provider Internal Medicine Cardiovascular Disease
DX: R06.09 Other forms of dyspnea (principal); I10 Essential (primary) hypertension; I34.0 Nonrheumatic mitral (valve) insufficiency; I35.1 Nonrheumatic aortic (valve) insufficiency
CPT/HCPCS: 78452; 93017; 93306; A9502; J2785

== ENCOUNTER 2023-09-19 11:40 | Emergency (ER) | payer MEDICARE, SELFPAY ==
[2023-09-19 11:50] VITALS: PULSE 68; RESP 20; TEMP 36.7; O2SAT 98
[2023-09-19 12:14] LABS: Appearance Urine Clear (Clear); Bacteria Urine None Seen /hpf; Bilirubin Urine Negative (Negative); Blood Urine 1+ (Negative); Color Urine Yellow (Yellow); Glucose Urine UA Negative (Negative); Ketones Urine Negative (Negative); Leukocyte Esterase Ur Negative LEU/UL (Negative); Nitrate Urine Negative (Negative); Non Pathogenic Casts 0-2; Protein Urine Negative (Negative); Specific Grav Ur 1.012 (1.001-1.035); Squamous Epithelial Cell Urine None Seen /hpf (Few); Urobilinogen Urine 0.2 mg/dL (<2.0); WBC Urine 0-5 /hpf (0-3); pH Urine 5.5 (5.0-9.0)
[2023-09-19 12:18] LABS: Add Urine Microscopic? YES
--- NOTE | 2023-09-19 12:34 | ED.MALEGU ---
HPI - Male Genitourinary General Chief complaint: Urogenital-Male Stated complaint: urinary retention Time Seen by Provider: 09/19/23 11:47 Source: patient and family Mode of arrival: ambulatory Limitations: no limitations History of Present Illness HPI Narrative: 73-year-old with a history of hypertension, BPH here with a complaint of unable to urinate since last night. Patient states that he had a similar problem 2 years ago. He is presently on Flomax. He denies any fever or chills. No history of nausea or vomiting. No new medication . Onset (ago): hour(s) (12) Duration: constant Severity: moderate Quality: aching Relieving factors: urination Exacerbating factors: none Associated symptoms: Reports denies other symptoms Related Data Allergies Allergy/AdvReac Type Severity Reaction Status Date / Time No Known Allergies Allergy Verified 09/19/23 11:54 Review of Systems Review of Systems: All systems reviewed & are unremarkable except as noted in HPI and below Constitutional: Constitutional: Reports no additional constitutional complaints Eyes: Eyes: Reports no additional eye complaints ENT: Reports system reviewed and no additional complaints, except as documented Cardiovascular: Cardiovascular: Reports no additional cardiovascular complaints Respiratory: Respiratory: Reports no additional respiratory complaints Gastrointestinal: Gastrointestinal: Reports no additional gastrointestinal complaints Genitourinary: Genitourinary: Reports as per HPI Musculoskeletal: Musculoskeletal: Reports no additional musculoskeletal complaints Integumentary/Breasts: Skin/Breast: Reports system reviewed and no additional complaints, except as docu Neurologic: Reports system reviewed and no additional complaints, except as documented PMFSH Past Medical History Medical History BPH (benign prostatic hyperplasia) Bronchitis CHF (congestive heart failure) Chronic GERD Chronic low back pain COPD (chronic obstructive pulmonary disease) COPD (chronic obstructive pulmonary disease) Depression Encounter for screening for malignant neoplasm of prostate GERD (gastroesophageal reflux disease) HLD (hyperlipidemia) Hyperlipidemia Leg fracture, right Mild intermittent reactive airway disease Prostate CA Screening for colon cancer UTI (urinary tract infection) Surgical History Surgical History H/O repair of right rotator cuff History of esophagogastroduodenoscopy (EGD) Family History Family History Father Malignant neoplasm of prostate Heart disease Cerebrovascular accident Mother Acute myocardial infarction Social History Social History Smoking status: Former smoker Smoking end date: 07/07/71 Alcohol intake: former Substance use: current Substance use type: marijuana Last use: occasional Lack of Transportation: No Lack of Food: Never True Current Housing: I Have Housing Concerned About Future Housing: No Difficulty Paying Gas/Electric Bills: No Difficulty Paying for Meds: No Currently Unemployed: No Education: Don't Know Difficulty w/ Childcare or Family Care: No Living arrangements: with family Additional living arrangements comments: Occupation/Education: retired Gender identity (if verbalized by the patient): Male Spiritual care concerns: No Agree to blood products: Yes Exam Narrative: GENERAL: Well-appearing, well-nourished, and in no acute distress. HEAD: Normocephalic, atraumatic. EYES: PERRLA and EOMI. ENT: Nares clear, no rhinorrhea or epistaxis. Mucous membranes moist. NECK: Supple. CHEST: Clear to auscultation. No respiratory distress. HEART: Regular rate and rhythm. No murmur heard. Normal peripheral pulses. ABDOMEN: Soft, suprapubic t
[2023-09-19 13:07] VITALS: BP 142/84; PULSE 84; RESP 16; O2SAT 98
--- NOTE | 2023-09-19 13:08 | PC.NURSE ---
catheter care provided prior to discharge how to change catheter drainage bags also shown to the pt and family member
== END 2023-09-19 13:08 | disposition home or self-care (01) ==
PROVIDERS: Emergency Provider Family Medicine; PCP Family Medicine
DX: N40.1 Benign prostatic hyperplasia with lower urinary tract symptoms (principal); R33.8 Other retention of urine; I50.9 Heart failure, unspecified; I11.0 Hypertensive heart disease with heart failure; J44.9 Chronic obstructive pulmonary disease, unspecified; E78.5 Hyperlipidemia, unspecified; K21.9 Gastro-esophageal reflux disease without esophagitis; Z85.46 Personal history of malignant neoplasm of prostate; Z87.891 Personal history of nicotine dependence
CPT/HCPCS: 51702; 99283

== ENCOUNTER 2023-11-03 13:18 | Observation (INO) | payer MEDICARE, SELFPAY ==
[2023-11-03] VITALS (11 sets, daily range): BP systolic 147–188; BP diastolic 76–92; PULSE 49–55; RESP 9–24; TEMP 35.8–36.7; O2SAT 96–99
--- NOTE | ~2023-11-03 | CT_ITS ---
EXAMINATION: CT cervical spine wo con DATE: 11/03/2023 13:44 INDICATION: Neck pain. Fall down stairs. TECHNIQUE: Computed tomography (CT) of the cervical spine was performed without intravenous contrast. Automated exposure control and iterative reconstruction technique were employed. The dose-length pro duct was 453.29 mGy-cm. COMPARISON: None FINDINGS: There is a fracture of C2 involving the body and bilateral superior facets. The dens fractu re fragment demonstrates 6 degrees leftward angulation, 2 mm anterior displacement, and impaction. Th ere is 4 degrees dextrocurvature of cervical spine. There is mildly decreased disc height at C3-C4, m oderately decreased disc height at C4-C5, and severely decreased disc height at C6-C7. The following disc levels are specifically discussed: C2-C3: There is mild bilateral uncovertebral joint osteoarthritis. There is severe right and moderate left facet joint osteoarthritis. There is mild right neural foraminal stenosis. There is no central canal stenosis. C3-C4: There is mild right and severe left uncovertebral joint osteoarthritis. There is severe bilate ral facet joint osteoarthritis. There is moderate left neural foraminal stenosis. There is mild centr al canal stenosis. C4-C5: There is mild bilateral uncovertebral joint osteoarthritis. There is moderate right and severe left facet joint osteoarthritis. There is mild bilateral neural foraminal stenosis. There is mild ce ntral canal stenosis. C5-C6: There is mild bilateral uncovertebral joint osteoarthritis. There is severe bilateral facet lulu int osteoarthritis. There is mild bilateral neural foraminal stenosis. There is mild central canal st enosis. C6-C7: There is mild right and moderate left uncovertebral joint osteoarthritis. There is moderate ri ght and severe left facet joint osteoarthritis. There is mild left neural foraminal stenosis. There i s no central canal stenosis. C7-T1: There is no uncovertebral joint osteoarthritis. There is mild right and severe left facet join t osteoarthritis. There is mild left neural foraminal stenosis. There is no central canal stenosis. IMPRESSION: 1. Type III odontoid fracture. I called this result to Carlota Skinner. 2. Severe cervical spondylosis. Reviewed, dictated and finalized at location A.
--- NOTE | ~2023-11-03 | MR_ITS ---
EXAMINATION: MR cervical spine wo con DATE: 11/04/2023 14:11 INDICATION: Type III odontoid fracture. TECHNIQUE: Magnetic resonance imaging (MRI) of the cervical spine was performed without intravenous c ontrast. COMPARISON: CT cervical spine 10/28/2023 FINDINGS: There is a fracture of C2 involving the body and bilateral superior facets. The dens fractu re fragment demonstrates 2 mm anterior displacement and impaction. There is 4 degrees dextrocurvature of cervical spine. There is mildly decreased disc height at C3-C4, moderately decreased disc height at C4-C5, and severely decreased disc height at C6-C7. The spinal cord signal intensity is normal. Th e following disc levels are specifically discussed: C2-C3: The disc does not extend beyond the endplate margins. There is mild bilateral uncovertebral lulu int osteoarthritis. There is severe right and moderate left facet joint osteoarthritis. There is mild right neural foraminal stenosis. There is no central canal stenosis. C3-C4: The disc does not extend beyond the endplate margins. There is mild right and severe left unco vertebral joint osteoarthritis. There is severe bilateral facet joint osteoarthritis. There is modera te left neural foraminal stenosis. There is mild central canal stenosis. C4-C5: There is a central protrusion. There is mild bilateral uncovertebral joint osteoarthritis. The re is moderate right and severe left facet joint osteoarthritis. There is mild bilateral neural kelvin inal stenosis. There is mild central canal stenosis. C5-C6: There is a central protrusion. There is mild bilateral uncovertebral joint osteoarthritis. The re is severe bilateral facet joint osteoarthritis. There is mild bilateral neural foraminal stenosis. There is mild central canal stenosis. C6-C7: The disc does not extend beyond the endplate margins. There is mild right and moderate left un covertebral joint osteoarthritis. There is moderate right and severe left facet joint osteoarthritis. There is mild left neural foraminal stenosis. There is no central canal stenosis. C7-T1: The disc does not extend beyond the endplate margins. There is no uncovertebral joint osteoart hritis. There is mild right and severe left facet joint osteoarthritis. There is mild left neural for aminal stenosis. There is no central canal stenosis. IMPRESSION: 1. Type III odontoid fracture. 2. Severe cervical spondylosis. Reviewed, dictated and finalized at location A.
--- NOTE | ~2023-11-03 | XR_ITS ---
EXAMINATION: XR chest 1V portable 11/03/2023 15:39 INDICATION: Syncope PROCEDURE: AP portable chest COMPARISON: Comparison to multiple prior studies sequentially, with oldest reviewed study dated 05/07. FINDINGS: The lungs are clear. The cardiomediastinal silhouette is within normal limits. There are no pleural effusions. There is no pneumothorax suspected. IMPRESSION: 1: NO ACUTE CARDIOPULMONARY DISEASE. Reviewed, dictated and finalized at location B.
--- NOTE | ~2023-11-03 | XR_ITS ---
Right Shoulder Technique: AP and scapular Y views were obtained. Clinical History: Pain Findings: No fracture or dislocation is seen. Osseous alignment is anatomic. There is mild degenerati ve change at the glenohumeral joint and AC joint. Soft tissues are unremarkable. Impression: Mild degenerative change, as above. Reviewed, dictated and finalized at location . Impression: Mild degenerative change, as above.
--- NOTE | ~2023-11-03 | CT_ITS ---
EXAMINATION: CT BRAIN W/O DATE: 11/03/2023 13:44 INDICATION: Head injury. Status post fall downstairs. TECHNIQUE: Computed tomography (CT) of the head was performed without intravenous contrast. The dose- length product was 681.00 mGy-cm. Automated exposure control and iterative reconstruction technique w ere employed. COMPARISON: No prior studies for comparison. FINDINGS: Normal brain parenchymal volume for age. Normal whitmore-white differentiation. No acute intrac ranial hemorrhage, infarction, mass or mass effect. No ventriculomegaly or midline shift. Midline sagittal images demonstrate a normal corpus callosum, c raniovertebral junction and sella turcica. Basilar cisterns are patent. There is mucosal thickening of the paranasal sinuses. Mastoids are pneumatized. No depressed skull fr actures. IMPRESSION: 1. No acute intracranial abnormality. Reviewed, dictated and finalized at location B.
--- NOTE | 2023-11-03 13:20 | ECG_ITS ---
SEE SCANNED COPY FOR CONFIRMED REPORT MTDD
--- NOTE | 2023-11-03 13:24 | ED.FALL ---
HPI - Fall General Chief Complaint: Fall <Carlota Skinner PA-C - Last Filed: 11/05/23 09:08> Stated Complaint: fall <Carlota Skinner PA-C - Last Filed: 11/05/23 09:08> Time Seen by Provider: 11/03/23 13:22 <Carlota Skinner PA-C - Last Filed: 11/05/23 09:08> Focused HPI: Patient is a 73-year-old male who presents the ED with report of a fall. Patient reports he was walking on the stairs just prior to arrival and that is the last thing he remembers. Daughter states she heard him walking down the stairs and soon after found him on the concrete floor downstairs unconscious. There are 15 stairs. She states she broke the basement door off its hinges. Patient sustained a head injury, laceration to his right temporal region. Unknown last tetanus. Complains of pain to his neck and right shoulder. Denies back pain, numbness, dizziness, lightheadedness, vision changes. GENERAL: Elderly, and in no acute distress. HEAD: Normocephalic. Contusion to R temporal region with small 1cm laceration. No active bleeding. NECK: TTP throughout midline spine and left sided paraspinal musculature. Limited ROM d/t pain. CHEST: Clear to auscultation. ?No respiratory distress. HEART: Regular rate and rhythm.? NEURO: ?Alert and oriented X2, thinks it is 2004. No focal deficits. Patient screened in triage and initial orders placed.? ?Additional care and disposition to be based upon?diagnostic testing and treatment. <Carlota Skinner PA-C - Last Filed: 11/05/23 09:08> Source: patient <Carlota Skinner PA-C - Last Filed: 11/05/23 09:08> family (daughter) <Deepa Sam MD - Last Filed: 11/06/23 16:28> Mode of arrival: ambulatory <Carlota Skinner PA-C - Last Filed: 11/05/23 09:08> Limitations: no limitations <Carlota Skinner PA-C - Last Filed: 11/05/23 09:08> History of Present Illness HPI Narrative: Agree with above in addition: Patient thinks he hit his head on the doorknob. Patient states he stumbled/lost his balance and then fell and then lost consciousness. Last oral intake last evening. THey had just goten back from a urology appointment this morning in which his Sadler was changed. He denies any paresthesias. Complaining of neck pain. <Deepa Sam MD - Last Filed: 11/06/23 16:28> Related Data Home Medications: Home Medications Medication Instructions Recorded Confirmed omeprazole 40 mg capsule,delayed 40 mg PO DAILY 11/03/23 11/03/23 release <Carlota Skinner PA-C - Last Filed: 11/05/23 09:08> Allergies/Adverse Reactions: Allergies Allergy/AdvReac Type Severity Reaction Status Date / Time No Known Allergies Allergy Verified 11/03/23 13:19 <Carlota Skinner PA-C - Last Filed: 11/05/23 09:08> [facility] Past Medical History Medical History: Medical History (Updated 11/06/23 @ 16:21 by Deepa Sam MD) Benign prostatic hyperplasia Chronic low back pain Chronic obstructive pulmonary disease Depression Gastroesophageal reflux disease Hyperlipidemia Indwelling Sadler catheter present Prostate cancer <Carlota Skinner PA-C - Last Filed: 11/05/23 09:08> Surgical History Surgical History: Surgical History (Updated 11/03/23 @ 16:22 by Luz Alva PA-C) History of bilateral cataract extraction History of esophagogastroduodenoscopy (EGD) History of repair of right rotator cuff <Carlota Skinner PA-C - Last Filed: 11/05/23 09:08> Family History Family History: Family History Father Malignant neoplasm of prostate Heart disease Cerebrovascular accident Mother Acute myocardial infarction <Carlota Skinner PA-C - Last Filed: 11/05/23 09:08> Social History Social History: Social History (Updated 11/03/23 @ 21:51 by Luz Alva PA-C) Social History: Surrogate medical decision maker: Janis Rodriguez
--- NOTE | 2023-11-03 13:26 | PC.NURSE ---
Cervical collar applied upon arrival to triage.
[2023-11-03] MEDS: TETANUS,DIPHTHERIA,AC PERTUSSIS ADULT (0.5 ML) BOOSTRIX IM (13:59)
[2023-11-03 14:09] LABS: Basophils Absolute Auto 0.1 K/mm3 (0.0-0.1); Basophils Percent Auto 0.7 % (0.2-1.2); Eosinophils Absolute Auto 0.2 K/mm3 (0-0.3); Eosinophils Percent Auto 1.8 % (0-4.4); Hematocrit 41.3 % (42.0-52.0); Hemoglobin 14.4 g/dL (14.0-18.0); Immature Granulocyte Absolute 0.06 K/mm3 (0.00-0.031); Immature Granulocyte Percent A 0.6 % (0-0.5); Lymphocytes Absolute Auto 1.77 K/mm3 (0.9-3.2); Lymphocytes Percent Auto 17.1 % (18.3-44.2); Mean Corpuscular HGB Conc 34.9 g/dl (32-36); Mean Corpuscular Hemoglobin 32.4 pg (26-34); Mean Platelet Volume 9.9 fl (7.4-10.4); Monocytes Absolute Auto 0.4 K/mm3 (0.1-0.6); Monocytes Percent Auto 4.3 % (2.6-8.5); Neutrophils Absolute Auto 7.8 K/mm3 (1.3-6.7); Neutrophils Percent Auto 75.5 % (45.5-73.1); Platelet Count Result 176 k/mm3 (150-375); Red Blood Count 4.44 M/mm3 (4.6-6.20); White Blood Count 10.4 K/mm3 (4.5-10.0)
[2023-11-03 14:20] LABS: Alanine Aminotransferase 24 U/L (6-50); Albumin Level 4.9 g/dL (3.5-5.1); Alkaline Phosphatase 68 U/L (38-126); Anion Gap 9 mmol/L (4-12); Aspartate Amino Transferase 40 U/L (17-59); Bilirubin,Total 1.3 mg/dL (0.2-1.3); Blood Urea Nitrogen 12 mg/dL (9-20); Calcium 9.8 mg/dL (8.4-10.2); Carbon Dioxide 25 mmol/L (22-30); Chloride 95 mmol/L (98-107); Estimated CRCL calculation 82 ml/min; Estimated Glomerular Filt Rate > 60; Glucose 118 mg/dL (65-110); Magnesium 2.1 mg/dL (1.6-2.3); Potassium 4.1 mmol/L (3.4-5.0); Sodium 129 mmol/L (137-145)
[2023-11-03 14:31] LABS: Troponin I < 0.012 ng/mL (0.000-0.034)
[2023-11-03 14:46] LABS: Creatine Kinase 548 U/L (55-170)
[2023-11-03] MEDS: SODIUM CHLORIDE 0.9% IV 1,000 ML 999 ML IV CONT (15:47)
[2023-11-03] MEDS: ACETAMINOPHEN 500 MG TABLET 1000 MG PO (15:48)
[2023-11-03] MEDS: ONDANSETRON INJ 4 MG/2 ML VIAL IV PUSH (15:48)
[2023-11-03] MEDS: fentaNYL CITRATE INJ (*CRX) 100 MCG/2 ML VIAL 25 MCG IV PUSH (15:50)
--- NOTE | 2023-11-03 16:17 | PM.IMHP ---
H&P: HPI History of Present Illness Date/Time: 11/03/23 18:00 Chief Complaint: Fall. Narrative: This is a very pleasant 73-year-old male with hypertension, bradycardia, chronic obstructive pulmonary disease, benign prostatic hyperplasia with urinary retention and indwelling Sadler catheter, gastroesophageal reflux disease, who presented to the emergency department via EMS for evaluation after a fall. The patient provides the following history and his daughter provides additional information with the patient's permission. He saw his urologist today and had his Sadler catheter exchanged. After returning home he was walking down the stairs and on the last couple of steps he lost his footing and fell straight forward, striking his head on the door. He had a brief loss of consciousness before coming to without confusion. He denies antecedent symptoms prior to the fall. He did sustain a head injury with a laceration to the right temporal region. On arrival to the ED complained of pain in the neck and right shoulder. He denies focal weakness, paresthesias, visual changes, chest and pleuritic pain, palpitations, nausea, and vomiting. In the ED: He was bradycardic on arrival however that is pretty chronic for this patient. Blood pressures have been running in the 150s to 170s systolic. Labs were significant for WBC count of 10.4, sodium 129, chloride 95, total CK 548, troponin less than 0.012. Brain CT showed no acute findings. Cervical spine CT showed a type 3 odontoid fracture and severe cervical spondylosis. Right shoulder and chest x-rays were without acute findings. ED physician spoke with Dr. Cesar Priest, application technician neurosurgeon, who recommends placing the patient in an [place] collar as this is not a surgical case at this time. He will see the patient in the hospital. Review of Systems Review of Systems: 12 systems were reviewed and are negative except for as per HPI. [facility] Past Medical History Medical History (Updated 11/03/23 @ 16:32 by Luz Alva PA-C) Benign prostatic hyperplasia Chronic low back pain Chronic obstructive pulmonary disease Depression Gastroesophageal reflux disease Hyperlipidemia Prostate cancer Surgical History Surgical History (Updated 11/03/23 @ 16:22 by Luz Alva PA-C) History of bilateral cataract extraction History of esophagogastroduodenoscopy (EGD) History of repair of right rotator cuff Family History Family History Father Malignant neoplasm of prostate Heart disease Cerebrovascular accident Mother Acute myocardial infarction Social History Social History (Updated 11/03/23 @ 21:51 by Luz Alva PA-C) Social History: Surrogate medical decision maker: Janis Green, daughter. Code status: Full code. Smoking status: Never smoker Smoking end date: 07/07/71 Alcohol intake: never Substance use: current Substance use type: marijuana Last use: occasional Do You Feel Safe in your Home?: Yes Lack of Transportation: No Lack of Food: Never True Current Housing: I Have Housing Concerned About Future Housing: No Difficulty Paying Gas/Electric Bills: No Difficulty Paying for Meds: No Currently Unemployed: No Education: Don't Know Difficulty w/ Childcare or Family Care: No Living arrangements: with family Additional living arrangements comments: . Occupation/Education: retired Spiritual care concerns: No Agree to blood products: Yes Meds Home Medications and Allergies Home Medications Medication Instructions Recorded Confirmed Type budesonide-formoterol HFA 160 See Rx Instructions .Route 07/14/23 11/03/23 Rx mcg-4.5 mcg/actuation aerosol .COMPLEX #10.2 ea inhaler albuterol sulfate 90 mcg/actuation 2 inh inhalation Q4H PRN shortness 08/25/23 11/03/23 Rx aerosol inhaler of breath or wheezing #6.7 grams budesonide 160 mcg-glycopyr 9 2 inh inhalation
--- NOTE | 2023-11-03 17:57 | ADMGEN ---
This patient, Henry Ardon, was admitted to [facility] S[facility] Room 307-01. Patient/family oriented to hospital policies and general routines including ID bracelet, bed and alarms, visiting hours, pain management, procedures, bathroom and other care routines, personal items, smoking policy, room service/diet, and visiting hours. Information on how to activate the Rapid Response Team has been discussed. Patient/Family are encouraged to report perceived risks to care and to ask questions if they do not understand what they are told or what they should do.
[2023-11-03] MEDS: SODIUM CHLORIDE 0.9% IV 1,000 ML 100 ML IV CONT (18:34)
[2023-11-03] MEDS: HYDROcodone/acetaminophen (*CRX) 5-325 MG TABLET 1 TAB PO (21:45)
[2023-11-03 22:12] LABS: Anion Gap 4 mmol/L (4-12); Blood Urea Nitrogen 12 mg/dL (9-20); Calcium 9.5 mg/dL (8.4-10.2); Carbon Dioxide 23 mmol/L (22-30); Chloride 99 mmol/L (98-107); Creatine Kinase 523 U/L (55-170); Estimated CRCL calculation 93 ml/min; Estimated Glomerular Filt Rate > 60; Glucose 102 mg/dL (65-110); Potassium 4.9 mmol/L (3.4-5.0); Sodium 126 mmol/L (137-145)
[2023-11-03] MEDS: TAMSULOSIN HCL 0.4 MG CAPSULE BY MOUTH (23:55)
[2023-11-04] VITALS (10 sets, daily range): BP systolic 143–168; BP diastolic 66–71; PULSE 42–67; RESP 14–20; TEMP 36.4–37.1; O2SAT 95–96
[2023-11-04 00:02] LABS: Appearance Urine Clear (Clear); Bacteria Urine 3+ /hpf; Bilirubin Urine Negative (Negative); Blood Urine 2+ (Negative); Color Urine Yellow (Yellow); Glucose Urine UA Negative (Negative); Ketones Urine 1+ mg/dL (Negative); Leukocyte Esterase Ur 2+ LEU/UL (Negative); Nitrate Urine Positive (Negative); Non Pathogenic Casts 0-2; Protein Urine Negative (Negative); Specific Grav Ur 1.014 (1.001-1.035); Squamous Epithelial Cell Urine None Seen /hpf (Few); WBC Urine >100 /hpf (0-3)
[2023-11-04 00:05] LABS: Add Urine Microscopic? YES; Creatinine Urine 88.7 mg/dL; Urea Random Urine 611 MG/DL
[2023-11-04 00:07] LABS: Sodium Urine Random 59 meq/L
[2023-11-04 03:18] LABS: Basophils Absolute Auto 0.1 K/mm3 (0.0-0.1); Basophils Percent Auto 0.9 % (0.2-1.2); Eosinophils Absolute Auto 0.2 K/mm3 (0-0.3); Hematocrit 36.6 % (42.0-52.0); Immature Granulocyte Absolute 0.01 K/mm3 (0.00-0.031); Immature Granulocyte Percent A 0.2 % (0-0.5); Lymphocytes Absolute Auto 1.65 K/mm3 (0.9-3.2); Lymphocytes Percent Auto 29.1 % (18.3-44.2); Mean Corpuscular HGB Conc 35.5 g/dl (32-36); Mean Corpuscular Hemoglobin 32.4 pg (26-34); Mean Corpuscular Volume 91.3 fl (80-100); Mean Platelet Volume 9.8 fl (7.4-10.4); Monocytes Absolute Auto 0.4 K/mm3 (0.1-0.6); Monocytes Percent Auto 7.1 % (2.6-8.5); Neutrophils Absolute Auto 3.4 K/mm3 (1.3-6.7); Neutrophils Percent Auto 59.7 % (45.5-73.1); Platelet Count Result 144 k/mm3 (150-375); Red Blood Count 4.01 M/mm3 (4.6-6.20); White Blood Count 5.7 K/mm3 (4.5-10.0)
[2023-11-04 03:25] LABS: Alanine Aminotransferase 22 U/L (6-50); Albumin Level 4.2 g/dL (3.5-5.1); Alkaline Phosphatase 58 U/L (38-126); Anion Gap 9 mmol/L (4-12); Aspartate Amino Transferase 42 U/L (17-59); Bilirubin,Total 1.4 mg/dL (0.2-1.3); Blood Urea Nitrogen 11 mg/dL (9-20); Calcium 9.3 mg/dL (8.4-10.2); Carbon Dioxide 20 mmol/L (22-30); Chloride 100 mmol/L (98-107); Creatine Kinase 449 U/L (55-170); Estimated CRCL calculation 107 ml/min; Estimated Glomerular Filt Rate > 60; Glucose 91 mg/dL (65-110); Magnesium 2.1 mg/dL (1.6-2.3); Potassium 4.2 mmol/L (3.4-5.0); Sodium 129 mmol/L (137-145)
[2023-11-04] MEDS: FLUTICASONE/UMECLIDIN/VILANTER 100-62.5-25 MCG ELLIPTA 1 PUFF INHALATION (07:50)
[2023-11-04] MEDS: HYDROcodone/acetaminophen (*CRX) 5-325 MG TABLET 1 TAB PO ×3 (07:59→20:31)
[2023-11-04] MEDS: PANTOPRAZOLE 40 MG TABLET PO ×2 (07:59→16:06)
[2023-11-04] MEDS: lisinopriL 20 MG TABLET PO (08:00)
[2023-11-04] MEDS: ESCITALOPRAM OXALATE 10 MG TABLET BY MOUTH (08:00)
--- NOTE | 2023-11-04 15:05 | PM.IMPN ---
Progress Note: A&P Assessment and Plan (1) UTI (urinary tract infection): Code(s): N39.0 - Urinary tract infection, site not specified Status: Acute Assessment and Plan: 11/04/23: UA shows 1+ urine ketones 2+ urine blood, positive nitrates, 2+ leukocyte, greater than 100 urine wbc's, 3+ bacteria Urine culture is obtained and pending Patient started on Rocephin (2) Fall on stairs: Code(s): W10.9XXA - Fall (on) (from) unspecified stairs and steps, initial encounter Status: Acute Assessment and Plan: 11/04/23: CT of the cervical spine and MRI of the cervical spine show a type 3 odontoid fracture, severe cervical spondylosis Neurosurgery is consulted Patient placed in [place] collar, no surgery required from a neurosurgery standpoin PT and OT (3) Elevated creatine kinase: Code(s): R74.8 - Abnormal levels of other serum enzymes Status: Acute Assessment and Plan: 11/04/23: Total CK today for 449, bilirubin 1.4 Continue to trend labs (4) Type III fracture of odontoid process: Qualifiers: Encounter type: initial encounter Fracture type: closed Qualified Code(s): S12.120A - Other displaced dens fracture, initial encounter for closed fracture Code(s): S12.120A - Other displaced dens fracture, initial encounter for closed fracture Status: Acute Assessment and Plan: 11/04/23: CT of the cervical spine and MRI of the cervical spine show a type 3 odontoid fracture, severe cervical spondylosis Patient placed in [place] collar Neurosurgery following (5) Hyponatremia: Code(s): E87.1 - Hypo-osmolality and hyponatremia Status: Acute Assessment and Plan: 11/04/23: Sodium 129 Patient received 2 L normal saline while in the ED Serum osmolarity, urine osmolality are pending Urine sodium 59 Continue fluid restriction (6) Hypertension: Code(s): I10 - Essential (primary) hypertension Status: Acute Assessment and Plan: 11/04/23: Blood pressure 143/66 to 176/ 76 Continue lisinopril (7) Benign prostatic hyperplasia: Code(s): N40.0 - Benign prostatic hyperplasia without lower urinary tract symptoms Status: Acute Assessment and Plan: 11/04/23: Continue tamsulosin Time Spent With Patient Time with patient: Greater than 35 minutes Subjective Date/time seen: 11/04/23 15:05 Interval history: This is a 73-year-old male presented on 11/03/2023 for evaluation after a fall. Workup in the hospital included a head CT which was negative. He also had a right shoulder x-ray which showed mild degenerative changes, no fracture dislocation seen. Cervical spine CT showed type 3 odontoid fracture, severe cervical spondylosis. Chest x-ray was negative. Cervical spine MRI showed type 3 odontoid fracture, severe cervical spondylosis. Initial labs showed a white blood cell count of 10.4, sodium 129, chloride 90, total CK was 548, troponin was negative. UA showed 1+ ketone, 2+ urine blood, positive nitrate, 2+ leukocytes, greater than 100 urine wbc's, 3+ urine bacteria. Urine cultures pending. Patient was given 2 L normal saline while in the ED. urine random sodium 59, urine osmolarity pending serum osmolarity pending. Neurosurgery was consulted. Patient was placed in an [place] cervical collar per Neurosurgery request. Injury did not require surgery at time per Neurosurgery. On examination patient is alert and oriented x3, lying in the bed. He has his C-collar in place He denies any fever, chills, nausea, vomiting, diarrhea, abdominal pain, chest pain, or shortness of breath. He endorses mild neck pain and a headache. He does have maurilio in the right side of his scalp beyond the hairline. Labs today reveal hemoglobin 13.0, white blood cell count down to 5.7, platelet count 144, sodium 120 bicarb 20, total bili 1.4, total CK down 440. We will start Rocephin for urinary tract infection. Review of Systems
[2023-11-04] MEDS: TAMSULOSIN HCL 0.4 MG CAPSULE BY MOUTH (20:30)
--- NOTE | 2023-11-04 23:24 | WPDNEUROSGCN ---
Assessment and Plan Assessment and plan (1) Type III fracture of odontoid process: Qualifiers: Encounter type: initial encounter Fracture type: closed Qualified Code(s): S12.120A - Other displaced dens fracture, initial encounter for closed fracture Code(s): S12.120A - Other displaced dens fracture, initial encounter for closed fracture Status: Acute Assessment and Plan: Henry is a 73-year-old gentleman with neck pain and a type 3 odontoid fracture after a fall. The fragments are well opposed. He is being maintained in a hard cervical collar. This was the only treatment necessary at this point. He he must wear the collar at all times except when eating or bathing. In 4-6 weeks he should follow up in my office with a new CT scan of the neck to assess healing at which point we may start to ease him back into normal activity. He should also avoid strenuous activity such as lifting more than 10 lb or doing any strenuous activity with his upper extremities. Consult date: 11/04/23 HPI: Henry Ardon is a 73 year old male Who experienced a fall at home on the day of his emotion. He hit his head all the way down. He did not lose consciousness. He experienced immediate discomfort in his neck. At the [place] emergency room he was found to have a type 3 odontoid fracture. He does not experienced any pain, numbness or weakness of any of his extremities. He has not had any new bowel or Bladder incontinence. Review of Systems Review of Systems: Patient denies shortness of breath, cough, fever, chills, nausea, vomiting, weight loss, weight gain, chest pain, dysuria. He has neck discomfort as above. His review of systems is otherwise negative on 12 systems except as noted elsewhere. [facility] Past Medical History Medical History (Updated 11/03/23 @ 16:32 by Lzu Alva PA-C) Benign prostatic hyperplasia Chronic low back pain Chronic obstructive pulmonary disease Depression Gastroesophageal reflux disease Hyperlipidemia Prostate cancer Surgical History Surgical History (Updated 11/03/23 @ 16:22 by Luz Alva PA-C) History of bilateral cataract extraction History of esophagogastroduodenoscopy (EGD) History of repair of right rotator cuff Family History Family History Father Malignant neoplasm of prostate Heart disease Cerebrovascular accident Mother Acute myocardial infarction Social History Social History (Updated 11/03/23 @ 21:51 by Luz Alva PA-C) Social History: Surrogate medical decision maker: Janis Green, daughter. Code status: Full code. Smoking status: Never smoker Smoking end date: 07/07/71 Alcohol intake: never Substance use: current Substance use type: marijuana Last use: occasional Do You Feel Safe in your Home?: Yes Lack of Transportation: No Lack of Food: Never True Current Housing: I Have Housing Concerned About Future Housing: No Difficulty Paying Gas/Electric Bills: No Difficulty Paying for Meds: No Currently Unemployed: No Education: Don't Know Difficulty w/ Childcare or Family Care: No Living arrangements: with family Additional living arrangements comments: . Occupation/Education: retired Spiritual care concerns: No Agree to blood products: Yes Meds Home Medications and Allergies Home Medications Medication Instructions Recorded Confirmed Type budesonide-formoterol HFA 160 See Rx Instructions .Route 07/14/23 11/03/23 Rx mcg-4.5 mcg/actuation aerosol .COMPLEX #10.2 ea inhaler albuterol sulfate 90 mcg/actuation 2 inh inhalation Q4H PRN shortness 08/25/23 11/03/23 Rx aerosol inhaler of breath or wheezing #6.7 grams budesonide 160 mcg-glycopyr 9 2 inh inhalation BID #5.9 grams 08/25/23 11/03/23 Rx mcg-formot 4.8 mcg/actuation HFA inhaler (Breztri Aerosphere) ciprofloxacin HCl 500 mg tablet
[2023-11-05] VITALS: PULSE 52
[2023-11-05 04:00] VITALS: PULSE 53
[2023-11-05 05:41] VITALS: BP 163/72; PULSE 55; RESP 18; TEMP 36.6; O2SAT 96
[2023-11-05] MEDS: lisinopriL 20 MG TABLET PO (07:43)
[2023-11-05] MEDS: PANTOPRAZOLE 40 MG TABLET PO (07:43)
[2023-11-05] MEDS: ESCITALOPRAM OXALATE 10 MG TABLET BY MOUTH (07:43)
[2023-11-05 08:00] VITALS: BP 178/86; PULSE 55; RESP 18; TEMP 36.4; O2SAT 96
[2023-11-05] MEDS: FLUTICASONE/UMECLIDIN/VILANTER 100-62.5-25 MCG ELLIPTA 1 PUFF INHALATION (08:08)
[2023-11-05 08:41] VITALS: BP 144/80; BP 183/91
--- NOTE | 2023-11-05 11:15 | PM.DS ---
DS: Admitting Diagnosis Discharge Date 11/05/23 Admitting Diagnosis Fall on stairs Type III fracture of odontoid process elevated creatine kinase hyponatremia COPD HTN BPH DS: Discharge Diagnosis Discharge Diagnosis (1) UTI (urinary tract infection): Code(s): N39.0 - Urinary tract infection, site not specified Status: Acute (2) Fall on stairs: Code(s): W10.9XXA - Fall (on) (from) unspecified stairs and steps, initial encounter Status: Acute (3) Elevated creatine kinase: Code(s): R74.8 - Abnormal levels of other serum enzymes Status: Acute (4) Type III fracture of odontoid process: Qualifiers: Encounter type: initial encounter Fracture type: closed Qualified Code(s): S12.120A - Other displaced dens fracture, initial encounter for closed fracture Code(s): S12.120A - Other displaced dens fracture, initial encounter for closed fracture Status: Acute (5) Hyponatremia: Code(s): E87.1 - Hypo-osmolality and hyponatremia Status: Acute (6) Hypertension: Code(s): I10 - Essential (primary) hypertension Status: Acute (7) Benign prostatic hyperplasia: Code(s): N40.0 - Benign prostatic hyperplasia without lower urinary tract symptoms Status: Acute DS: Summary Hospital Course Reason for hospitalization: Fall on stairs Type III fracture of odontoid process elevated creatine kinase hyponatremia COPD HTN BPH Hospital Course: 11/04/23: This is a 73-year-old male presented on 11/03/2023 for evaluation after a fall.? Workup in the hospital included a head CT which was negative.? He also had a right shoulder x-ray which showed mild degenerative changes, no fracture dislocation seen.? Cervical spine CT showed type 3 odontoid fracture, severe cervical spondylosis.? Chest x-ray was negative.? Cervical spine MRI showed type 3 odontoid fracture, severe cervical spondylosis.? Initial labs showed a white blood cell count of 10.4, sodium 129, chloride 90, total CK was 548, troponin was negative.? UA showed 1+ ketone, 2+ urine blood, positive nitrate, 2+ leukocytes, greater than 100 urine wbc's, 3+ urine bacteria.? Urine cultures pending.? Patient was given 2 L normal saline while in the ED. urine random sodium 59, urine osmolarity pending serum osmolarity pending.? Neurosurgery was consulted.? Patient was placed in an [place] cervical collar per Neurosurgery request.? Injury did not require surgery at time per Neurosurgery. On examination patient is alert and oriented x3, lying in the bed. He has his C-collar in place He denies any fever, chills, nausea, vomiting, diarrhea, abdominal pain, chest pain, or shortness of breath. He endorses mild neck pain and a headache. He does have maurilio in the right side of his scalp beyond the hairline.? Labs today reveal hemoglobin 13.0, white blood cell count down to 5.7, platelet count 144, sodium 120 bicarb 20, total bili 1.4, total CK down 440.? We will start Rocephin for urinary tract infection. 11/05/23: Patient denies any new complaints today. He remains in the C-collar. He does report increased pain after working with therapy today however is controlled with the pain medication. Patient is stable for discharge at this time. He will need to follow up with Neurosurgery in 4-[address] scan his cervical spine. Was discharged home with pain medication and antibiotics. He will follow up with his primary care physician in 1 week. Final diagnosis: Type III fracture of odontoid process, hyponatremia, status post fall, urinary tract infection Status at Discharge Cognitive/behavioral status at discharge: alert and oriented x3 Functional status at discharge: independent ambulation Overall status at discharge: patient is progressing back to baseline Time Spent with Patient Time spent: Greater than 30 minutes Exam Narrative: General: In no acute distress, well nourished, pleasant Head: atraumatic, no encephalopa
[2023-11-05 13:39] LABS: Osmolality, Urine 462 mOsm/kg (50-1200)
== END 2023-11-05 14:05 | disposition home or self-care (01) ==
LOC: ANHED 14:58 → ANH3MEDSUR 11-04 12:53
PROVIDERS: Physician Assistant; Admitting Provider Internal Medicine; Emergency Provider Student in an Organized Health Care Education/Training Program; PCP Family Medicine; Visit Provider Internal Medicine
DX: S12.120A Other displaced dens fracture, initial encounter for closed fracture (principal); W10.9XXA Fall (on) (from) unspecified stairs and steps, initial encounter; R74.8 Abnormal levels of other serum enzymes; N39.0 Urinary tract infection, site not specified; E87.1 Hypo-osmolality and hyponatremia; S01.01XA Laceration without foreign body of scalp, initial encounter; I10 Essential (primary) hypertension; J44.9 Chronic obstructive pulmonary disease, unspecified; K21.9 Gastro-esophageal reflux disease without esophagitis; G89.29 Other chronic pain; M54.50 Low back pain, unspecified; E78.5 Hyperlipidemia, unspecified; Z85.46 Personal history of malignant neoplasm of prostate; F32.A Depression, unspecified; N40.0 Benign prostatic hyperplasia without lower urinary tract symptoms; Z23 Encounter for immunization
CPT/HCPCS: 12001; 36415; 70450; 71045; 72125; 72141; 73030; 80048; 80053; 81001; 82550; 82570; 83735; 83930; 83935; 84300; 84484; 84540; 85025; 85055; 87077; 87086; 87088; 87186; 90471; 90715; 93005; 94640; 96361; 96365; 96374; 96375; 97161; 97165; 97535; 99285; A9270; G0378; J0696; J2405; J3010; J7030; L0140

== ENCOUNTER 2024-04-29 10:53 | Emergency (ER) | payer MEDICARE, SELFPAY ==
--- NOTE | ~2024-04-29 | XR_ITS ---
XR chest 2V Ordering provider: JONNY Mora History: 73 years Male with . cough x1 month. COPD, SOB . Comparison: November 03, 2023 FINDINGS: MEDIASTINUM: The cardiac silhouette is not enlarged. LUNGS: No infiltrates, effusions or pneumothorax. OTHER: No free air under the diaphragm. Degenerative changes of the spine. IMPRESSION: No acute cardiopulmonary pathology. Reviewed, dictated and finalized at location A.
[2024-04-29 11:08] VITALS: BP 151/67; PULSE 58; RESP 16; TEMP 36.8; O2SAT 96
[2024-04-29 11:09] VITALS: BP 151/67; PULSE 58; RESP 16; TEMP 36.8; O2SAT 96
[2024-04-29 11:10] VITALS: PULSE 57; RESP 28; O2SAT 97
--- NOTE | 2024-04-29 11:24 | ED.SOB ---
HPI - SOB/Dyspnea General Chief Complaint: Shortness of Breath/Dyspnea Stated Complaint: SOB COPD med refill Time Seen by Provider: 04/29/24 11:13 Source: patient, family (Daughter) and RN notes reviewed Mode of arrival: ambulatory Limitations: no limitations History of Present Illness HPI Narrative: Patient presents today with a 1 month history of cough, 2 week history of shortness of breath that has been worse over the last 3 days. Patient has been out of his wrist tree and albuterol inhalers for the past 3 weeks. Denies fever or any other upper respiratory symptoms. He has an appointment in 4 days to initiate care with a new PCP. History of COPD. Related Data Allergies Allergy/AdvReac Type Severity Reaction Status Date / Time No Known Allergies Allergy Verified 04/29/24 11:06 Review of Systems Review of Systems: CONSTITUTIONAL: Denies body aches, fever, chills, or sweats. EYES: Denies visual changes, redness, or discharge. ENT: Denies rhinorrhea, congestion, sore throat, or otalgia. CARDIOVASCULAR: Denies chest pain, palpitations, or edema. RESPIRATORY:+ cough, shortness of breath GASTROINTESTINAL: Denies abdominal pain, nausea, vomiting, or diarrhea. GENITOURINARY: Denies dysuria or hematuria. SKIN: Denies rash, itching, or wounds. MUSCULOSKELETAL: Denies back pain, joint pain, or myalgia. NEUROLOGIC: Denies headache, numbness, tingling, or weakness. PSYCH: Denies depression or anxiety. [facility] Past Medical History Medical History (Updated 04/29/24 @ 12:17 by Kristina Shanks, [facility]) Benign prostatic hyperplasia Chronic low back pain Chronic obstructive pulmonary disease Depression Gastroesophageal reflux disease Hyperlipidemia Indwelling [place] catheter present Prostate cancer Surgical History Surgical History (Updated 11/03/23 @ 16:22 by Luz Alva PA-C) History of bilateral cataract extraction History of esophagogastroduodenoscopy (EGD) History of repair of right rotator cuff Family History Family History Father Malignant neoplasm of prostate Heart disease Cerebrovascular accident Mother Acute myocardial infarction Social History Social History (Updated 11/03/23 @ 21:51 by Lzu Alva PA-C) Social History: Surrogate medical decision maker: Janis Green, daughter. Code status: Full code. Smoking status: Never smoker Smoking end date: 07/07/71 Alcohol intake: never Substance use: current Substance use type: marijuana Last use: occasional Do You Feel Safe in your Home?: Yes Lack of Transportation: No Lack of Food: Never True Current Housing: I Have Housing Concerned About Future Housing: No Difficulty Paying Gas/Electric Bills: No Difficulty Paying for Meds: No Currently Unemployed: No Education: Don't Know Difficulty w/ Childcare or Family Care: No Living arrangements: with family Additional living arrangements comments: . Occupation/Education: retired Spiritual care concerns: No Agree to blood products: Yes Comments At time of signature, I have reviewed and agree with nursing past medical, surgical, social and family history unless otherwise noted. Please see nursing chart for further information. There is no relevant family history pertinent to the presenting complaint Exam Narrative: GENERAL: Ill-appearing, well-nourished HEAD: Normocephalic, atraumatic. EYES: EOMI. No redness or drainage. Conjunctivae normal. ENT: Mucous membranes pink and moist. Nares clear. No rhinorrhea. TMs normal bilaterally. NECK: Normal AROM. Supple. No lymphadenopathy. CHEST: No respiratory distress. Diminished throughout. Tachypnea. Supraclavicular retractions noted. HEART: Regular rate and rhythm. No murmur appreciated. Normal peripheral pulses. EXTREMITIES: Normal range of motion. No edema. SKIN: Warm, dry, no rash. Capillary refill normal. Normal skin
[2024-04-29] MEDS: IPRATROPIUM BR 0.02% INH SOLN 0.5 MG/2.5 ML VIAL INHALATION (11:37)
[2024-04-29] MEDS: ALBUTEROL SULFATE NEB 2.5 MG/3 ML INH INHALATION (11:37)
== END 2024-04-29 12:25 | disposition home or self-care (01) ==
PROVIDERS: Emergency Provider Nurse Practitioner
DX: J44.1 Chronic obstructive pulmonary disease with (acute) exacerbation (principal)
CPT/HCPCS: 71046; 94640; 99213; G0463